=== PATIENT | female | born 1955 | race Caucasian/White ===

== ENCOUNTER 2024-06-17 08:38 | Emergency (ER) | payer MEDICARE, SELFPAY ==
--- NOTE | ~2024-06-17 | US_ITS ---
EXAMINATION: US ABDOMEN LIMITED CLINICAL INFORMATION: Left upper quadrant pain. COMPARISON: None available. TECHNIQUE: Real-time imaging of the spleen and gallbladder. FINDINGS: GALLBLADDER: Intraluminal gallbladder polyp measuring 5 mm. No cholelithiasis, wall thickening or pericholecystic fluid. Sonographic Pineda sign is negative. COMMON BILE DUCT: Normal in caliber measuring 0.5 cm in diameter. SPLEEN: Spleen is unremarkable measuring 7.1 cm. US/US abdomen limited IMPRESSION: 1. Intraluminal gallbladder polyp measuring 5 mm. 2. Unremarkable spleen.
[2024-06-17 08:44] VITALS: BP 142/82; PULSE 73; RESP 16; TEMP 35.9; O2SAT 98; BMI 31.6
[2024-06-17 09:06] LABS: MANUAL DIFF FLAG NO
[2024-06-17 09:09] LABS: Basophils Absolute Auto 0.1 X10*3/uL (0.0-0.2); Basophils Percent Auto 0.6 % (0-2); Eosinophils Absolute Auto 0.1 X10*3/uL (0.0-0.4); Eosinophils Percent Auto 1.4 % (0-4); Hematocrit 38.1 % (37.0-47.0); Hemoglobin 13.4 g/dl (12.0-16.0); Imm Gran Abs Auto 0.01 X10*3/uL (0.00-0.03); Imm Gran Pct Auto 0.1 % (0.0-0.4); Lymphocytes Absolute Auto 2.1 X10*3/uL (1.2-4.9); Lymphocytes Percent Auto 26.8 % (20-40); Mean Corpuscular HGB Conc 35.2 g/dl (31.0-35.0); Mean Corpuscular Hemoglobin 33.3 pg (27.0-33.0); Mean Corpuscular Volume 94.8 fL (80.0-98.0); Mean Platelet Volume 9.7 fL (9.4-12.3); Monocytes Absolute Auto 0.8 X10*3/uL (0.1-1.2); Monocytes Percent Auto 9.9 % (2-11); Neutrophils Absolute Auto 4.7 x10*3/uL (2.0-8.3); Neutrophils Percent Auto 61.2 % (45-73); Platelet Count 315 X10*3/uL (160-400); Red Blood Count 4.02 X10*6/uL (4.20-5.50); Red Cell Distribution Width 11.9 % (11.0-16.0); White Blood Count 7.7 X10*3/uL (4.8-10.8)
[2024-06-17 09:20] LABS: Alanine Aminotransferase 28 U/L (0-31); Albumin Level 4.6 g/dL (3.5-5.0); Alkaline Phosphatase 76 U/L (39-117); Anion Gap 14 (12-20); Aspartate Amino Transferase 29 U/L (5-31); Bilirubin Total 0.6 mg/dL (0.0-1.0); Blood Urea Nitrogen 15 mg/dL (9-16); Calcium 10.1 mg/dL (8.4-10.2); Carbon Dioxide 25 mmol/L (22-29); Chloride 102 mmol/L (96-108); Creatinine Clr Calc Pharmacy 63.4; Estimated Glomerular Filt Rate > 60; Glucose Random 97 mg/dL (60-115); Lipase 61 U/L (8-78); Potassium 4.2 mmol/L (3.3-5.1); Sodium 137 mmol/L (135-145); Total Protein 7.7 g/dL (6.5-8.0)
--- NOTE | 2024-06-17 09:25 | ED_ITS ---
HPI - Abdominal Pain General Chief Complaint: Abdominal Pain Stated Complaint: Lt Flank Pain Time Seen by Provider: 06/17/24 09:03 Source: patient and family Mode of arrival: ambulatory Limitations: no limitations History of Present Illness ED Provider: DEEPIKA HPI narrative: 69 yo female with PMH of HTN who has had on and off intermittent LUQ pain for 2 years. Just came to see daughter from [facility] 3 days ago. She notes yesterday had unusual L leg pain and then started with LUQ pain that she has had before. Her doctor in [place] did US but said he didn't know what it meant. She has had normal colonoscopy as well. She denies n/v/d or symptoms. She denies dyspnea. Denies trauma to the chest. MD elicited complaint: abdominal pain Pertinent past history: none Onset (ago): day(s) (2) Pain Consistency: constant Location: LUQ Severity: moderate Quality: aching Radiation: none Migration to: no migration Exacerbating factors: other (inspiration) Relieving factors: nothing Context: history of similar episodes Associated symptoms: denies other symptoms Related Data Allergies Allergy/AdvReac Type Severity Reaction Status Date / Time No Known Allergies Allergy Verified 06/17/24 08:50 Review of Systems Review of Systems Constitutional : No Weight loss, No Fever, No Chills ENT/Mouth : No sore throat, No Rhinorrhea Eyes: No Swelling, No Redness Cardiovascular : No Chest Pain, No SOB, No Edema Respiratory : No Cough, No Sputum, No Wheezing Gastrointestinal : no Nausea, no Vomiting, no Diarrhea, positive abdominal Pain, No Hematochezia, No Melena Genitourinary : No Dysuria, No Urinary Frequency, No Hematuria, No Urgency Musculoskeletal : No joint pain, No Myalgias, No Joint Swelling Skin : No Skin Lesions, No rash Neuro : No Weakness, No Numbness, No Dizziness, No Headache All other systems reviewed and are negative. [facility] Past Medical History Attestation statement: The following information was validated with the patient. Source: old records reviewed Medical History HTN (hypertension) Social History Social History (Updated 06/17/24 @ 09:40 by Dana Hernandez DO) Patient Tobacco Use Status: Never used Tobacco Advance Directives: No Advance Directives Information Provided: Yes Physical Exam ED Vital Signs: Vital Signs - 24 hr 06/17/24 08:44 Temperature 96.7 F L Pulse Rate 73 Respiratory Rate 16 Blood Pressure 142/82 H Pulse Oximetry 98 Oxygen Delivery Method Room Air BMI result Body Mass Index 31.6 Appearance: Alert. Oriented X3. No acute distress. Eyes: Pupils equal, round and reactive to light. ENT: Pharynx normal. Neck: Normal inspection. Neck supple. CVS: Normal heart rate and rhythm. Pulses normal. Respiratory: No respiratory distress. Breath sounds normal. Abdomen: Soft and nontender. neg pineda sign Skin: Skin warm and dry. Normal skin color. Normal skin turgor. Extremities: No lower extremity edema. No calf ttp Neuro: Oriented X 3. No motor deficit. No sensory deficit. Medical Decision Making Medical Decision Making [facility] Narrative: 69 yo female with PMH of HTN here with c/o intermittent recurrent LUQ pain no associated GI or symptoms did have some left leg pain last night NV intact no swelling to suggest DVT but just came from [place] last night at this time will need labs, ddimer, EKG, US to evaluate GB and spleen. No other red flags such as weight loss or fever reported. Differential Diagnosis Differential Diagnoses: The differential diagnosis associated with the presentation includes gastritis, VTE, splenomegaly, abdominal pain Admission/Observation Consideration of admission/observation: Escalation of care including admission/observation considered labs reassuring stable for DC Lab Data [facility] Lab Attestation statement: I reviewed the patient's lab results. age adjusted ddimer 340 VTE unlikely under value 06/17/24 09:01 06/17/24 09:01 Labs: Lab Results 06/17/24 06/17/24 06/17/24 Range/Units 09:01 09:52 10:27 WBC 7.7 (4.8-10.8) X10*3/uL RBC 4.02 L (4.20-5.50) X10*6/uL Hgb 13.4 (12.0-16.0) g/dl Hct 38.1 (37.0-47.0) % MCV 94.8 (80.0-98.0) fL MCH 33.3 H (27.0-33.0) pg MCHC 35.2 H (31.0-35.0) g/dl RDW 11.9 (11.0-16.0) % Plt Count 315 (160-400) X10*3/uL MPV 9.7 (9.4-12.3) fL Immature Gran % (Auto) 0.1 (0.0-0.4) % Neut % (Auto) 61.2 (45-73) % Lymph % (Auto) 26.8 (20-40) % [place] % (Auto) 9.9 (2-11) % Eos % (Auto) 1.4 (0-4) % Baso % (Auto) 0.6 (0-2) % Lymph # (Auto) 2.1 (1.2-4.9) X10*3/uL [place] # (Auto) 0.8 (0.1-1.2) X10*3/uL Eos # (Auto) 0.1 (0.0-0.4) X10*3/uL Baso # (Auto) 0.1 (0.0-0.2) X10*3/uL Abs Immat Gran (auto) 0.01 (0.00-0.03) X10*3/uL Absolute Neuts (auto) 4.7 (2.0-8.3) x10*3/uL Absolute Nucleated RBC 0.000 (0.0-0.012) X10*3/uL Nucleated RBC % (auto) 0.0 (0.0-0.2) /100WBC D-Dimer High Sensitivty 278 NG/ML Sodium 137 (135-145) mmol/L Potassium 4.2 (3.3-5.1) mmol/L Chloride 102 (96-108) mmol/L Carbon Dioxide 25 (22-29) mmol/L Anion Gap 14 (12-20) BUN 15 (9-16) mg/dL Creatinine 0.92 (0.5-1.4) mg/dL Estim Creat Clear Calc 63.4 Estimated GFR > 60 Random Glucose 97 (60-115) mg/dL Calcium 10.1 (8.4-10.2) mg/dL Total Bilirubin 0.6 (0.0-1.0) mg/dL AST 29 (5-31) U/L ALT 28 (0-31) U/L Alkaline Phosphatase 76 (39-117) U/L Total Protein 7.7 (6.5-8.0) g/dL Albumin 4.6 (3.5-5.0) g/dL Lipase 61 (8-78) U/L Urine Color Yellow Urine Appearance Clear Urine pH 6.5 (5.0-9.0) Ur Specific [place] 1.010 (1.005-1.025) Urine Protein Negative (Neg-Trace) mg/dL Urine Glucose (UA) Negative (Negative) mg/dL Urine Ketones Negative (Negative) mg/dL Urine Blood Negative (Negative) Urine Nitrite Negative (Negative) Ur Leukocyte Esterase Negative (Negative) Independent Interpretation I performed an independent interpretation of an: EKG and Ultrasound (polyp) Interpretation: Rate: 73 Rhythm: NSR [place]: normal Normal P waves. Normal TATIANNA. Normal QRS complex. ST T wave : normal no [place] , inverted t wave V1 qTC: 418 prior studies: no acute ischemia The study has been interpreted contemporaneously by me. . Radiology Impression Discussion of test interpretation with radiology: I have reviewed the radiologist's reading. Independent Historian Clinical information obtained from an independent historian. History obtained from or confirmed by: Other (daughter) Discharge Plan Discharge Clinical Impression: Abdominal pain Qualifiers: Abdominal location: left upper quadrant Qualified Code(s): R10.12 - Left upper quadrant pain Patient Disposition: Home, Self-Care Instructions: Abdominal Pain (ED) Additional Instructions: labs reassuring blood clot test negative no acute findings can follow up with doctor about gallbladder polyp - monitor and occasionally they will remove these as sometimes they change and can lead to cancer make sure you follow up when you get home EXAMINATION: US ABDOMEN LIMITED CLINICAL INFORMATION: Left upper quadrant pain. COMPARISON: None available. TECHNIQUE: Real-time imaging of the spleen and gallbladder. FINDINGS: GALLBLADDER: Intraluminal gallbladder polyp measuring 5 mm. No cholelithiasis, wall thickening or pericholecystic fluid. Sonographic Pineda sign is negative. COMMON BILE DUCT: Normal in caliber measuring 0.5 cm in diameter. SPLEEN: Spleen is unremarkable measuring 7.1 cm. US/US abdomen limited IMPRESSION: 1. Intraluminal gallbladder polyp measuring 5 mm. 2. Unremarkable spleen. Print Language: Macedonian
--- NOTE | 2024-06-17 09:45 | ECG_ITS ---
Test Reason : abd pain Blood Pressure : / mmHG Vent. Rate : 073 BPM Atrial Rate : 073 BPM P-R Int : 160 ms QRS Dur : 074 ms QT Int : 380 ms P-R-T Axes : 046 042 037 degrees QTc Int : 418 ms Normal sinus rhythm Low voltage QRS Borderline ECG No previous ECGs available Referred By: Dana Hernandez Electronically Signed By:RODGER RODRIGUEZ MD
[2024-06-17 10:14] LABS: D Dimer High Sensitivity 278 NG/ML
[2024-06-17 10:34] LABS: Appearance Urine Clear; Color Urine Yellow; Glucose Urine UA Negative (Negative); Leukocyte Esterase Urine Negative (Negative); Nitrite Urine Negative (Negative); PH 6.5 (5.0-9.0); Urine Blood Negative (Negative); Urine Ketones Negative (Negative); Urine Protein Negative (Neg-Trace)
[2024-06-17 12:00] VITALS: BP 138/88; PULSE 77; RESP 18; TEMP 36.2; O2SAT 98
== END 2024-06-17 12:00 | disposition home or self-care (01) ==
PROVIDERS: Emergency Provider Emergency Medicine
DX: R10.12 Left upper quadrant pain (principal); I10 Essential (primary) hypertension
CPT/HCPCS: 36415; 76705; 80053; 81003; 83690; 85025; 85379; 93005; 99283; 99284

== ENCOUNTER → 2024-06-17 09:45 | Outpatient (BNV) | payer MEDICARE, SELFPAY | PROVIDERS: Emergency Provider Emergency Medicine; Visit Provider Internal Medicine Cardiovascular Disease | DX: R94.31 Abnormal electrocardiogram [ECG] [EKG] (principal); R10.9 Unspecified abdominal pain | CPT/HCPCS: 93010 ==